=== PATIENT | female | born 1995 | race Two or more races ===

== ENCOUNTER 2020-10-15 06:13 | Emergency (ER) | payer MEDICAID ==
[~2020-10-15] VITALS: Ht 170.2 cm; Wt 90.0 kg
[2020-10-15] MEDS ORDERED: buprenorphine/naloxone 8MG-2MG SUBlingual film SL STA (06:52)
[2020-10-15 07:15] VITALS: BP 134/75
== END 2020-10-15 07:17 | disposition home or self-care (01) ==
LOC: ER 06:15
DX: Z02.89 Encounter for other administrative examinations (principal); R05 Cough; F11.90 Opioid use, unspecified, uncomplicated; J45.909 Unspecified asthma, uncomplicated; F15.90 Other stimulant use, unspecified, uncomplicated
CPT/HCPCS: 99281; 99283

== ENCOUNTER 2021-11-25 10:50 | Emergency (ER) | payer MEDICAID ==
[~2021-11-25] VITALS: Ht 170.2 cm; Wt 90.0 kg
[2021-11-25 10:59] VITALS: BP 135/91
[2021-11-25] MEDS ORDERED: IBUP-1986 PO (11:04)
[2021-11-25] MEDS ORDERED: AMOX-580 PO (11:04)
== END 2021-11-25 11:51 | disposition home or self-care (01) ==
LOC: ER 10:50
DX: K04.7 Periapical abscess without sinus (principal); K08.89 Other specified disorders of teeth and supporting structures; R50.9 Fever, unspecified; J45.909 Unspecified asthma, uncomplicated; F15.90 Other stimulant use, unspecified, uncomplicated; F11.90 Opioid use, unspecified, uncomplicated; Z79.2 Long term (current) use of antibiotics; Z79.899 Other long term (current) drug therapy
CPT/HCPCS: 99283